=== PATIENT | male | born 1995 | race Caucasian/White ===

== ENCOUNTER 2019-10-18 07:09 | Emergency (ER) | payer BC, SELFPAY ==
[2019-10-18 07:16] VITALS: BP 129/77; PULSE 80; RESP 19; TEMP 36.7; O2SAT 97
--- NOTE | 2019-10-18 07:21 | ED.URI ---
HPI - URI/Sore Throat General Chief Complaint: Upper Respiratory Infection Stated Complaint: cold symptoms Time Seen by Provider: 10/18/19 07:12 Related Data Home Medications Medication Instructions Recorded Confirmed No Home Medications 10/18/19 10/18/19 Allergies Allergy/AdvReac Type Severity Reaction Status Date / Time Sulfa (Sulfonamide Allergy Unknown Verified 10/18/19 07:19 Antibiotics) PMFSH Social History Social History Gender identity (if verbalized by the patient): Male Course Vital Signs Vital signs: Vital Signs Temperature 36.7 C 10/18/19 07:16 Pulse Rate 80 10/18/19 07:16 Respiratory Rate 19 10/18/19 07:16 Blood Pressure 129/77 10/18/19 07:16 Pulse Oximetry 97 10/18/19 07:16 Temperature 36.7 C 10/18/19 07:16 Pulse Rate 80 10/18/19 07:16 Respiratory Rate 19 10/18/19 07:16 Blood Pressure 129/77 10/18/19 07:16 Pulse Oximetry 97 10/18/19 07:16 MDM - URI/Sore Throat Lab Data Labs: Influenza A Screen Positive Reference Range: Negative Influenza B Screen Negative Reference Range: Negative Discharge Plan Discharge Prescriptions: No Action No Home Medications RF: 0
[2019-10-18] MEDS: PSEUDOEPHEDRINE HCL 30 MG TABLET 60 MG PO (07:41)
[2019-10-18] MEDS: KETOROLAC (*BKC) 60 MG/2 ML VIAL IM (07:42)
== END 2019-10-18 08:17 | disposition home or self-care (01) ==
PROVIDERS: Emergency Provider Emergency Medicine
DX: J10.1 Influenza due to other identified influenza virus with other respiratory manifestations (principal)
CPT/HCPCS: 87804; 96372; 96374; 99284; A9270; J1100; J1885

== ENCOUNTER 2022-09-03 08:44 | Emergency (ER) | payer OTHER, SELFPAY ==
[2022-09-03 08:53] VITALS: BP 128/83; PULSE 71; RESP 16; TEMP 36.2; O2SAT 99
--- NOTE | 2022-09-03 09:31 | ED.URI ---
HPI - URI/Sore Throat General Chief Complaint: Upper Respiratory Infection Stated Complaint: sinus issues fever Time Seen by Provider: 09/03/22 09:32 Source: patient and RN notes reviewed Mode of arrival: ambulatory Limitations: no limitations History of Present Illness HPI Narrative: 27-year-old male presents with concern for sinus pressure, congestion, drainage, headache, fever, body aches, chills, sweats. Reports exposure influenza over the weekend. Reports he has been taking sinus medicine without Relief MD elicited complaint: cough and sore throat Related Data Home Medications Medication Instructions Recorded Confirmed albuterol sulfate 90 mcg/actuation 2 puff inhalation QID PRN sob 09/03/22 09/03/22 aerosol inhaler Allergies Allergy/AdvReac Type Severity Reaction Status Date / Time Sulfa (Sulfonamide Allergy Hives Verified 09/03/22 09:31 Antibiotics) Review of Systems Review of Systems: CONSTITUTIONAL: Reports malaise, chills, sweats, or fever. EYES: Denies visual changes, redness, or discharge. ENT: Reports rhinorrhea, congestion, sinus pain. Denies otalgia and sore throat. CARDIOVASCULAR: Denies chest pain, palpitations, or edema. RESPIRATORY: Denies cough. Denies dyspnea. GASTROINTESTINAL: Denies abdominal pain, nausea, vomiting, diarrhea SKIN: Denies rash or itching. MUSCULOSKELETAL: Reports myalgia. NEUROLOGIC: Reports headache. All systems reviewed & are unremarkable except as noted in HPI and below PMFSH Comments At time of signature, agree with nursing past medical, surgical, social and family history. There is no relevant family history pertinent to the presenting complaint Exam Narrative: GENERAL: Well-appearing, well-nourished, and in no acute distress. HEAD: Normocephalic EYES: PERRLA, conjunctivae clear ENT: Nares clear, turbinates edematous and erythematous, clear discharge. Mucous membranes moist. TM pearly alonzo with dull light reflex bilaterally; no tragal tenderness. Oropharynx not erythematous without lesions. Tonsils not enlarged and without exudate, no drooling, no hoarseness, no trismus, uvula midline. NECK: Supple. No lymphadenopathy CHEST: Clear to auscultation, breath sounds equal. No wheezing, rhonchi, rales, or stridor. No respiratory distress, speaks in full sentences. HEART: Regular rate and rhythm. No murmur heard. SKIN: Warm, dry, no rash. NEURO: Alert and oriented x3. PSYCH: Normal mood and affect Course Course Emergency Course: Patient is aware of diagnosis, understands and agrees to treatment plan. Anticipatory guidance given. Patient agrees to follow-up as directed and is aware of reasons to seek care at the emergency department. Portions of this record may have been created with voice recognition software Level of Care: Express Care Visit Vital Signs Vital signs: Vital Signs Temperature 97.2 F L 09/03/22 08:53 Pulse Rate 71 09/03/22 08:53 Respiratory Rate 16 09/03/22 08:53 Blood Pressure 128/83 09/03/22 08:53 Pulse Oximetry 99 09/03/22 08:53 Oxygen Delivery Room Air 09/03/22 08:53 Temperature 97.2 F L 09/03/22 08:53 Pulse Rate 71 09/03/22 08:53 Respiratory Rate 16 09/03/22 08:53 Blood Pressure 128/83 09/03/22 08:53 Pulse Oximetry 99 09/03/22 08:53 Oxygen Delivery Room Air 09/03/22 08:53 Reviewed. MDM - URI/Sore Throat MDM Narrative Medical decision making narrative: Differential diagnosis considered: Ding virus, strep pharyngitis, allergic rhinitis, upper respiratory tract infection, sinusitis, rhinosinusitis, nasopharyngitis. viral pharyngitis, otitis media, otitis externa, pneumonia, bronchitis, viral cough syndrome, viral syndrome, and influenza. Exam findings show no acute concerns or changes; patient is non-toxic appearing and is in no distress. Patient is appropriate for outpatient treatment and follow-up. Lab Data Attestation: I reviewed the patient's lab results. Critical Care Time [place]
== END 2022-09-03 09:45 | disposition home or self-care (01) ==
PROVIDERS: Emergency Provider Nurse Practitioner
DX: R50.9 Fever, unspecified (principal); R51.9 Headache, unspecified; R05.9 Cough, unspecified; J02.9 Acute pharyngitis, unspecified; R09.81 Nasal congestion
CPT/HCPCS: 99213; G0463

== ENCOUNTER → 2023-11-23 09:57 | Outpatient (CLI) | payer OTHER, SELFPAY ==
--- NOTE | ~2023-11-23 | XR_ITS ---
EXAMINATION: XR lumbar spine 2-3V DATE: 11/23/2023 10:11 INDICATION: Left-sided low back pain. TECHNIQUE: 3 views of lumbar spine were obtained. COMPARISON: None. FINDINGS: There is 8 degrees dextrocurvature of thoracolumbar spine. Vertebral body heights are philip l. There is severely decreased disc height at L5-S1. The facet joints are unremarkable. IMPRESSION: 1. Severe degenerative disc disease at L5-S1. Reviewed, dictated and finalized at location A. [employer]
== END ==
PROVIDERS: PCP Nurse Practitioner; Visit Provider Nurse Practitioner
DX: M51.37 Other intervertebral disc degeneration, lumbosacral region (principal)
CPT/HCPCS: 72100

== ENCOUNTER 2023-11-25 11:03 | Outpatient (CLI) | payer OTHER, SELFPAY ==
--- NOTE | ~2023-11-25 | MR_ITS ---
MRI of the lumbar spine Clinical History: Back pain Technique: Axial T2-weighted images, and sagittal T1-weighted, T2-weighted, and T2 fat-sat images wer e acquired. Findings: There is no fracture or subluxation of the lumbar spine. Vertebral bodies maintain normal h eight and line. No suspicious bone marrow signal abnormality seen. At L1-L2, L2-L3, and L3-L4, there is no disc bulge or herniation. No spinal canal stenosis or neural foraminal narrowing at these levels. At L4-L5, there is mild diffuse disc bulge and minimal facet joint hypertrophy. No spinal canal steno sis or neural foraminal narrowing. Fell tiny annular fissure. At L5-S1, there is minimal disc bulge. No spinal canal stenosis. There is moderate right neural elmo inal narrowing. Left neural foramen preserved. Paravertebral soft tissues are unremarkable. Impression: Mild degenerative spondylosis at L4-L5 and L5-S1, as detailed above. Reviewed, dictated and finalized at [facility]. AN Impression: Mild degenerative spondylosis at L4-L5 and L5-S1, as detailed above.
== END 2023-11-25 11:04 ==
LOC: GOSHIMG 11:04
PROVIDERS: PCP Internal Medicine; Visit Provider Nurse Practitioner
DX: M47.896 Other spondylosis, lumbar region (principal)
CPT/HCPCS: 72148